=== PATIENT | male | born 1970 | race Caucasian/White ===

== ENCOUNTER 2018-09-24 02:13 | Emergency (ER) | payer OTHER ==
[~2018-09-24] VITALS: Ht 180.3 cm; Wt 86.5 kg
[2018-09-24 02:20] VITALS: BP 125/66; PULSE 98; RESP 18; Ht 180.3 cm; Wt 86.5 kg
[2018-09-24] MEDS ORDERED: SULF1TAB31 PO (22:13)
[2018-09-24] MEDS ORDERED: CEPH-443 PO (22:13)
[2018-09-24] MEDS ORDERED: IBUP-1542 PO (22:17)
[2018-09-24] MEDS ORDERED: TRAM50TA2 PO (22:17)
== END 2018-09-24 03:39 | disposition left against medical advice (07) ==
LOC: FTE 02:13
DX: Z53.21 Procedure and treatment not carried out due to patient leaving prior to being seen by health care provider (principal)

== ENCOUNTER 2018-09-24 16:11 | Emergency (ER) | payer MEDICAID ==
[~2018-09-24] VITALS: Wt 84.6 kg
[2018-09-24] MEDS ORDERED: CEPHALEXIN 500 MG CAP PO ONE (21:00)
[2018-09-24] MEDS ORDERED: TRIMETHOPRIM/SULFAMETHOX (DS) TAB PO ONE (21:00)
[2018-09-24] MEDS ORDERED: LIDOCAINE 1%/EPI (MDV) 50 ML INJ INJ STA (21:14)
[2018-09-24] MEDS ORDERED: LIDOCAINE 1%/EPI 30 ML INJ INJ ONE (21:30)
[2018-09-24] MEDS ORDERED: LIDOCAINE 1%/EPI (MDV) 50 ML INJ INJ ONE (21:30)
[2018-09-24] MEDS ORDERED: CEPH-443 PO (22:13)
[2018-09-24] MEDS ORDERED: SULF1TAB31 PO (22:13)
[2018-09-24] MEDS ORDERED: TRAM50TA2 PO (22:17)
[2018-09-24] MEDS ORDERED: IBUP-1542 PO (22:17)
[2018-09-24] MEDS ORDERED: CEFTRIAXONE 1 GM INJ IM ONE (22:30)
[2018-09-24 23:03] VITALS: BP 116/54; PULSE 81; RESP 18
--- NOTE | 2018-09-24 23:27 | ERD ---
ER Documentation Chief Complaint Chief Complaint L THIGH PAIN S/P TABLE FELL ON LEG X1.5 WEEKS AGO HPI 48-year-old male presents to the ED complaining of left lateral thigh pain status post having a table fell on his leg a week and a half ago. Patient states that he developed a bump which has been expanding in the past 1.5 weeks. He states the pain is moderate in severity. He denies restrict range of motion. He denies fevers. He has not taken medications for this. He denies IV drug use ROS All systems reviewed and are negative except as per history of present illness. Medications Home Meds Active Scripts Tramadol HCl (Tramadol HCl) 50 Mg Tablet, 50 MG PO Q6 PRN for PAIN, #10 TAB Prov:CHUCKIE FONG PA-C 09/24/18 Ibuprofen* (Motrin*) 600 Mg Tab, 600 MG PO Q6H PRN for PAIN AND OR ELEVATED TEMP, #30 TAB Prov:CHUCKIE FONG PA-C 09/24/18 Sulfamethoxazole/Trimethoprim* (Bactrim Ds* Tablet) 1 Each Tablet, 1 TAB PO BID, #20 TAB Prov:CHUCKIE FONG PA-C 09/24/18 Cephalexin* (Keflex*) 500 Mg Capsule, 500 MG PO QID for 10 Days, CAP Prov:CHUCKIE FONG PA-C 09/24/18 Allergies Allergies: Coded Allergies: No Known Drug Allergies (Verified Allergy, Unknown, 09/24/18) PMhx/Soc Medical and Surgical Hx: pt denies Medical Hx, pt denies Surgical Hx Hx Alcohol Use: No Hx Substance Use: No Hx Tobacco Use: No Smoking Status: Never smoker Physical Exam Vitals Vital Signs Date Temp Pulse Resp B/P (MAP) Pulse Ox O2 O2 Flow FiO2 Time Delivery Rate 09/24/18 98.3 81 18 116/54 98 Room Air 23:03 (74) 09/24/18 99.2 76 20 121/69 99 17:23 (86) Physical Exam Const: No acute distress Head: Atraumatic Eyes: Normal Conjunctiva ENT: Normal External Ears, Nose and Mouth. Neck: Full range of motion. No meningismus. Resp: Clear to auscultation bilaterally Cardio: Regular rate and rhythm, no murmurs Abd: Soft, non tender, non distended. Normal bowel sounds Skin: 7' fluctuant erythematous warmth papule on left lateral thigh Back: No midline or flank tenderness Ext: No cyanosis, or edema Neur: Awake and alert Psych: Normal Mood and Affect Results 24 hrs Current Medications Medications Dose Sig/Vasquez Start Time Status Last (Trade) Ordered Route PRN Stop Time Admin Dose Reason Admin Cephalexin 500 mg ONCE ONCE 09/24/18 DC 09/24/18 (Keflex) PO 21:00 20:59 09/24/18 21:01 1 tab ONCE ONCE 09/24/18 DC 09/24/18 Trimethoprim/ PO 21:00 20:59 09/24/18 21:01 Sulfamethoxaz ole (Bactrim (Ds)) Lidocaine/ 50 ml ONCE ONCE 09/24/18 DC Epinephrine INJ 21:30 (Xylocaine 09/24/18 21:30 1%/ Epi (Mdv)) Lidocaine/ 50 ml ONCE STAT 09/24/18 DC Epinephrine INJ 21:14 (Xylocaine 09/24/18 21:16 1%/ Epi (Mdv)) Lidocaine/ 60 ml ONCE ONCE 09/24/18 DC Epinephrine INJ 21:30 (Xylocaine 09/24/18 21:31 1%/ Epi (Pf)) Ceftriaxone 1 gm ONCE ONCE 09/24/18 DC 09/24/18 Sodium IM 22:30 22:15 (Rocephin) 09/24/18 22:31 Procedures/MDM This is a 48-year-old male presenting to the ED with a large infected hematoma with cellulitis of the left lateral thigh that occurred after a table falling on his leg a week and a half ago. Patient had no wrist range of motion, I doubt fracture .There was no evidence of osteomyelitis, lymphangitis, necrotizing fasciitis. She is afebrile he has stable vital signs. He does not appear toxic. He has no history of diabetes. Incision and drainage was done in the ED, procedure below. Patient appears stable and appropriate for outpatient antibiotics. He was given Rocephin in the ED with a prescription for Keflex and Bactrim as an outpatient. Patient was given tramadol and ibuprofen for pain at home. Discussed this case with my supervising physician , who recommended 24-hour follow-up for re-evaluation. Patient understood and agreed with this plan. PROCEDURE NOTE: Verbal consent was obtained Wound was irrigated with normal saline Wound was cleansed with Betadine 10 cc Lidocaine 1% with epinephrine was used as a local anesthetic #11 blade scalpel was used for a single 1 inch incision. Copious drainage of purulence and blood clots occurred Wound packed with iodoform gauze strips Wound dressed with sterile gauze. Departure Diagnosis: Primary Impression: Infection of hematoma of wound Additional Impression: Cellulitis Condition: Stable Patient Instructions: Abscess Drainage, Cellulitis, Abscess, Incision And Drainage, Hematoma Referrals: NO PRIMARY,CARE PHYSICIAN (PCP) Additional Instructions: Please return tomorrow for re-evaluation of wound Take all medicines as directed. Return to this facility if you are not improving as expected. CHUCKIE FONG PA-C Sep 24, 2018 23:27
== END 2018-09-24 23:22 | disposition home or self-care (01) ==
LOC: FTE 16:11
DX: S80.12XA Contusion of left lower leg, initial encounter (principal); L03.116 Cellulitis of left lower limb; L08.9 Local infection of the skin and subcutaneous tissue, unspecified; W20.8XXA Other cause of strike by thrown, projected or falling object, initial encounter; Y92.9 Unspecified place or not applicable
CPT/HCPCS: 10060; J0696; Z7610; 96372